=== PATIENT | female | born 1990 | race African-American/Black ===

== ENCOUNTER 2019-02-28 10:44 | Day surgery (SDC) | payer OTHER ==
[2019-02-28] VITALS (12 sets, daily range): BP systolic 98–126; BP diastolic 48–76
[~2019-02-28] VITALS: Ht 161.3 cm; Wt 68.0 kg
[~2019-02-28 10:44] MED LIST: ceFAZolin sod 1gm in D5W 55ml IVPB ONE; celeBREX 200mg Cap **SURGERY PATIENTS ONLY ORAL ONE; oxyCONTIN 20mg tab ORAL ONE
[2019-02-28] MEDS ORDERED: ADDERALL XR 2020 MG ORAL (11:38)
[2019-02-28] MEDS ORDERED: NAPROXEN250 MG ORAL (11:39)
--- NOTE | 2019-02-28 11:40 | NUR ---
IV right wrist discontinued as patient complaining of pain in the site. IVF infusing well. IV site clear, no redness or swelling noted. IV attempted to start in right antecubital by Veronica Ernst RN but patient complained of severe pain. Not inserted and surgery ,Ángela notified to inform surgery nurse KAROLINA Marie.
[2019-02-28] MEDS ORDERED: celeBREX 200mg Cap **SURGERY PATIENTS ONLY ORAL ONE (11:41)
[2019-02-28] MEDS ORDERED: oxyCONTIN 20mg tab ORAL ONE (11:41)
[2019-02-28] MEDS ORDERED: Acetaminophen (Non formulary) 100 ML IV ONE (14:15)
--- NOTE | 2019-02-28 14:31 | Pre-Procedure Note/Attestation ---
Pre-Procedure Note/Attestation Complete Prior to Procedure Planned Procedure: left Procedure Narrative: hip diagnostic arthroscopy, possible labral repair Indications for Procedure Pre-Operative Diagnosis: left hip labral tear Attestation I attest that I discussed the nature of the procedure; its benefits; risks and complications; and alternatives (and the risks and benefits of such alternatives ), prior to the procedure, with the patient (or the patient's legal arborist representative). I attest that, if there was a reasonable possibility of needing a blood transfusion, the patient (or the patient's legal arborist representative) was given the [facility] standardized written summary, pursuant to the Yoav Karina Blood Safety Act ([place] Health and Safety Code # 1645, as amended). I attest that I re-evaluated the patient just prior to the surgery and that there has been no change in the patient's H&P, except as documented below: Ubaldo Key MD Feb 28, 2019 14:31
--- NOTE | 2019-02-28 14:32 | Operative Note - PDOC ---
Operative Note Operative Note Pre-op Diagnosis: left hip labral tear Procedure: see op report Post-op Diagnosis: same as pre-op plus Operative Findings: consistent w/pre-op dx studies Anesthesia: regional Specimen: none Complications: none Condition: stable Estimated Blood Loss: none Implant(s) used?: Yes Ubaldo Key MD Feb 28, 2019 14:32
[2019-02-28] MEDS ORDERED: Tylenol #3 tab (300mg/30mg) ORAL PRN (14:45)
[2019-02-28] MEDS ORDERED: HYDROmorphone 1mg/ml Carpuject SUBQ PRN (14:45)
[2019-02-28] MEDS ORDERED: HYDROcodone/Acetamin 5/325 tab ORAL PRN (14:45)
[2019-02-28] MEDS ORDERED: EPINEPHrine 1mg/1ml Amp ONE (15:27)
[2019-02-28] MEDS ORDERED: Duramorph PF 5mg/10ml amp ONE (15:28)
[2019-02-28] MEDS ORDERED: Kenalog-40 1ml Vial ONE (15:28)
[2019-02-28] MEDS ORDERED: Ketorolac 30mg Inj ONE ×2 (15:28→16:46)
[2019-02-28] MEDS ORDERED: fentaNYL 100 mcg/2 mL IV ONE (15:32)
[2019-02-28] MEDS ORDERED: Midazolam 2mg/2ml Inj ONE (15:32)
[2019-02-28] MEDS ORDERED: Lidocaine 1% MPF 10mg/ml 5ml ONE (15:33)
[2019-02-28] MEDS ORDERED: Propofol 200mg/20ml IV ONE (15:33)
[2019-02-28] MEDS ORDERED: TransDerm Scop 1.5mg/72HR Patch TDERMAL ONE (15:41)
[2019-02-28] MEDS ORDERED: Rocuronium Bromide 50mg/5ml Inj IV ONE (15:42)
[2019-02-28] MEDS ORDERED: Succinylcholine 20mg/ml 10ml vial ONE (15:42)
[2019-02-28] MEDS ORDERED: LR 1000ml ONE (15:46)
[2019-02-28] MEDS ORDERED: NS Irrig 1000ml ONE (15:46)
[2019-02-28] MEDS ORDERED: Duramorph PF 5mg/10ml amp IV ONE (16:18)
[2019-02-28] MEDS ORDERED: Morphine Sulfate 10mg/ml Inj ONE (16:44)
[2019-02-28] MEDS ORDERED: Glycopyrrolate 0.2mg/ml 1ml Vial ONE (16:45)
[2019-02-28] MEDS ORDERED: Sodium Chloride 10ml vial INJ ONE (16:45)
[2019-02-28] MEDS ORDERED: Neostigmine 1mg/ml 10ml Inj ONE (16:45)
[2019-02-28] MEDS ORDERED: Hydrogen Peroxide 473ml Bottle TOPIC ONE (17:35)
[2019-02-28] MEDS ORDERED: LR 1000ml 1,000 ML IVLG SCH (18:05)
--- NOTE | 2019-02-28 18:05 | Anethesia Preoperative Eval ---
Anesthesia Pre-op PMH/ROS General Date of Evaluation: Feb 28, 2019 Time of Evaluation: 15:30 Anesthesiologist: Maribell ASA Score: ASA 2 Mallampati Score Class I : Soft palate, uvula, fauces, pillars visible Class II: Soft palate, uvula, fauces visible Class III: Soft palate, base of uvula visible Class IV: Only hard plate visible Mallampati Classification: Class II Surgeon: Shahid Diagnosis: L hip pain Surgical Procedure: L hip scope Anesthesia History: none Family History: no anesthesia problems Allergies: Coded Allergies: No Known Allergies (Unverified , 02/27/19) Patient NPO?: Yes Past Medical History Cardiovascular: Denies: HTN, CAD, [place], valve dz, arrhythmia, other Pulmonary: Denies: asthma, COPD, [place]FF[place], other Gastrointestinal/Genitourinary: Reports: GERD; Denies: CRI, ESRD, other Neurologic/Psychiatric: Reports: depression/anxiety; Denies: dementia, CVA, TIA, other Endocrine: Denies: DM, hypothyroidism, steroids, other HEENT: Denies: cataract (L), cataract (R), glaucoma, [place] (L), [place] (R), other Hematology/Immune: Denies: anemia, DVT, bleeding disorder, other Musculoskeletal/Integumentary: Denies: OA, RA, DJD, DDD, edema, other PMH Narrative: as above PSxH Narrative: none Anesthesia Pre-op Phys. Exam Physician Exam Last Vital Signs Date Time Temp Pulse Resp B/P (MAP) Pulse Ox O2 Delivery O2 Flow Rate FiO2 02/28/19 12:23 Room Air 02/28/19 12:16 98.0 68 18 122/76 99 Constitutional: NAD Neurologic: CN 2-12 intact Cardiovascular: RRR, no M/R/G Respiratory: CTA Gastrointestinal: S/NT/ND Airway Exam Mallampati Score: Class II MO: full Neck: flexible ROM: full Teeth: intact Dentures: no upper, no lower Anesthesia Pre-op A/P Labs see chart Urine Test Test 02/28/19 10:57 Urine HCG, Qualitative Negative (NEGATIVE) Studies Pre-op Studies: EKG - NSR Risk Assessment & Plan Assessment: ASA 2 Plan: GA with ETT Status Change Before Surgery: No Pre-Antibiotics Drug: Ancef 1gr Given Within 1 Hr of Incision: Yes Time Given: 16:28 Grzegorz Reyna MD Feb 28, 2019 18:05
--- NOTE | 2019-02-28 18:10 | Immediate Post-Op Evaluation ---
Immediate Post-Op Evalulation Immediate Post-Op Evalulation Procedure: L hip arthroscopy with labrum repair Date of Evaluation: Feb 28, 2019 Time of Evaluation: 18:09 IV Fluids: 1000 Blood Products: none Estimated Blood Loss: min Urinary Output: none Blood Pressure Systolic: 116 Blood Pressure Diastolic: 72 Pulse Rate: 86 Respiratory Rate: 20 O2 Sat by Pulse Oximetry: 99 Temperature (Fahrenheit): 97.6 Pain Score (1-10): 2 Nausea: No Vomiting: No Complications none Patient Status: reacts, patent, extubated, none Hydration Status: adequate Grzegorz Reyna MD Feb 28, 2019 18:10
[2019-02-28] MEDS ORDERED: Meperidine 50mg/ml Inj(FOR RIGORS ONLY) ONE (18:13)
[2019-02-28] MEDS ORDERED: Meperidine 50mg/ml Inj(FOR RIGORS ONLY) IV PRN (18:15)
[2019-02-28] MEDS ORDERED: Metoclopramide 10mg/2ml Inj IVP PRN (18:15)
[2019-02-28] MEDS ORDERED: Ketorolac 30mg Inj IV PRN (18:15)
[2019-02-28] MEDS ORDERED: DiphenhydrAMINE 50mg/ml Inj IVP PRN (18:15)
[2019-02-28] MEDS ORDERED: Midazolam 2mg/2ml Inj IVP PRN (18:15)
[2019-02-28] MEDS ORDERED: Hydromorphone 0.5mg/0.5ml inj IVP PRN (18:15)
[2019-02-28] MEDS ORDERED: D5 1/2NS 1,000 ML IV SCH (19:00)
--- NOTE | 2019-02-28 23:15 | Operative Note - Dictated ---
DATE OF OPERATION: 02/28/2019 NOTE: "POOR AUDIO QUALITY" PREOPERATIVE DIAGNOSIS: Left hip traumatic labral tear. POSTOPERATIVE DIAGNOSIS: Left hip traumatic labral tear. PROCEDURES: 1. Left hip arthroscopy. 2. Left hip synovectomy. 3. Left hip arthroscopic labral repair. 4. Gentle chondroplasty of the acetabulum. SURGEON: Ubaldo Key M.D. ANESTHESIA: General. INDICATION FOR PROCEDURE: The patient is a pleasant female, who sustained a significant injury to her left hip and continued to have mechanical pain. She had an MRI, which showed a posterior labral tear. She failed conservative treatment. She elected to undergo left hip arthroscopic labral stabilization. Risks, limitations, expectations, and complications of the procedure were discussed in detail. All questions were addressed. DESCRIPTION OF PROCEDURE: After informed consent was obtained, the patient was brought to the operating room. The patient was placed under anesthesia. The patient was then carefully placed on the fracture table. Care was taken to pad all the extremities. The hip was then distracted gently. Spinal needle was placed into the hip joint to place the vacuum seal at which point, further distraction was obtainable. At that point, the left hip was prepped and draped in sterile manner. A lateral skin incision was then made. The spinal needle was then placed into the hip joint. The cannula was then placed into the hip. Second working portal was established anterolateral. Once that was done, the was then placed inside to further release the capsule to allow entrance of the slotted spoon and the [employer]throCare. The capsule was then released to allow mobilization and movement of the cannulas. Once this was done, diagnostic arthroscopy of the hip was performed. There was no significant chondral damage. There was a tear of the posterior labrum consistent with the MRI findings. No intra-articular loose bodies. Mild synovitis. At this point, a mattress suture was then placed through the torn labrum and secured back to the posterior acetabulum. Once that was completed, it was probed. Gentle chondroplasty of the chondral labral surface was performed. Once this was done, the instruments were removed. Portal sites were closed using 3-0 Monocryl suture. Steri-Strips and a sterile dressing were applied. The instruments were then removed. The hip was then relocated and intraoperative imaging had confirmed that. At this point, the skin was closed using Monocryl sutures. A compression dressing was applied. The patient was awoken and taken to recovery room with stable vital signs. ESTIMATED BLOOD LOSS: None. COMPLICATIONS: None. SPECIMENS: None. IMPLANTS: Include an Arthrex PushLock anchor. Ubaldo Key M.D. DR: Kasie JOB#: [id number] CC:
[2019-03-01 09:14] VITALS: BP 116/72
--- NOTE | 2019-03-01 09:14 | 48 Hour Post Anesthesia Eval ---
Post Anesthesia Evaluation Procedure: L hip arthroscopy with labrum repair Date of Evaluation: Feb 28, 2019 Time of Evaluation: 18:46 Blood Pressure Systolic: 116 0: 72 Pulse Rate: 74 Respiratory Rate: 20 Temperature (Fahrenheit): 97.6 O2 Sat by Pulse Oximetry: 98 Airway: patent Nausea: No Vomiting: No Pain Intensity: 2 Hydration Status: adequate Cardiopulmonary Status: stable Mental Status/LOC: patient returned to baseline Follow-up Care/Observations: n/a Post-Anesthesia Complications: none Follow-up care needed: ready to discharge Grzegorz Reyna MD Mar 01, 2019 09:14
== END 2019-02-28 19:45 | disposition home or self-care (01) ==
LOC: SUR 10:44
DX: S73.102A Unspecified sprain of left hip, initial encounter (principal); X58.XXXA Exposure to other specified factors, initial encounter; Y92.9 Unspecified place or not applicable; K21.9 Gastro-esophageal reflux disease without esophagitis; F32.9 Major depressive disorder, single episode, unspecified; F41.9 Anxiety disorder, unspecified
CPT/HCPCS: 29863; 81025; C1713; J0171; J0330; J0690; J1170; J1885; J2175; J2250; J2270; J2405; J2704; J2710; J2765; J3010; J3301; J7120; 94003; 94150